=== PATIENT | male | born 1965 | race Caucasian/White ===

== ENCOUNTER 2016-10-16 05:29 | Inpatient (IN) ==
[2016-10-16] MEDS ORDERED: ASPIRIN PO STA (05:38)
--- NOTE | 2016-10-16 05:54 | EKG Report ---
Test Performed on : 10/16/2016 05:30:19 AM Test Reason : Chest Pain Blood Pressure : / mmHG Vent. Rate : 093 BPM Atrial Rate : 093 BPM P-R Int : 130 ms QRS Dur : 096 ms QT Int : 400 ms P-R-T Axes : 070 014 095 degrees QTc Int : 497 ms Normal sinus rhythm. Possible Left atrial enlargement Left ventricular hypertrophy Inferior infarct , age undetermined Abnormal ECG No previous ECGs available Unconfirmed Result
[2016-10-16 05:56] LABS: MANUAL DIFF NEEDED? NO
[2016-10-16 06:00] LABS: BASO% 0.3 % (0.0-0.8); EOS# 0.18 X1000 (0.0-0.7); EOS% 2.3 % (0.0-10.0); HEMATOCRIT 41.7 % (42.0-52.0); HEMOGLOBIN 13.9 g/dL (14.0-18.0); IMM GRAN# 0.02 X1000 (0.0-0.04); IMM GRAN% 0.3 % (0.0-0.5); LYMPH# 2.44 X1000 (1.2-3.4); LYMPH% 31.4 % (20.5-51.1); MCH 29.5 PG (27-31); MCHC 33.3 g/dL (33-37); MCV 88.5 FL (81-99); MONO# 0.56 X1000 (0.11-0.59); MONO% 7.2 % (1.7-9.3); MPV 11.3 FL (7.4-10.4); NEUT% 58.5 % (42.2-75.2); PLT 239 X1000 (130-400); RBC 4.71 XMIL (4.7-6.1)
--- NOTE | 2016-10-16 06:07 | PROVIDER DOCUMENTATION ---
HPI-Chest Pain - General Chief Complaint: Chest Pain Stated Complaint: TROUBLE BREATHING Time Seen by Provider: 10/16/16 06:01 Source: patient Allergies/Adverse Reactions: Patient Allergies Allergy/AdvReac Type Severity Reaction Status Date / Time No Known Allergies Allergy Verified 10/16/16 05:54 Home Medications: Home Medication List Medication Instructions Recorded Confirmed Last Taken Type NK [No Home Medications] 10/16/16 10/16/16 Unknown History - History of Present Illness-CP Nature of Presenting Problem: 51 yo WM presented to ER with marked SOB and chest heaviness.. He is known to have IHD and did have two stents placed while in [facility]. He reports orthopnea , DOEbut no edema. Location: reports: substernal Chest Pain Radiation: reports: no radiation Quality of Pain: reports: fullness, pressure Severity in ED: mild Onset/Duration: 4-6 hours ago Timing: still present Context/Activities at Onset: reports: sleep Modifying Factors: improves with: nothing Associated Symptoms: reports: fatigue, shortness of breath, weakness Nitro Today/Relief: no nitro taken today Aspirin Treatment Today: no aspirin today Prior Chest Pain/Cardiac Workup: reports: cardiac cath, heart attack Similar Symptoms Previously?: Yes Recently Seen Here or By Another Healthcare Provider: No Review of Systems - Adult - REVIEW OF SYSTEMS - ADULT Constitutional: reports: see HPI, fatique Eyes: reports: no symptoms reported Ears, Nose, Mouth & Throat: reports: no symptoms reported Cardiovascular: reports: see HPI, chest pain, heart murmur, orthopnea, PND, syncope. denies: edema Respiratory: reports: dyspnea on exertion, wheezing Gastrointestinal: reports: no symptoms reported Genitourinary: reports: no symptoms reported Musculoskeletal: reports: no symptoms reported Integumentary: reports: no symptoms reported Neurological: reports: no symptoms reported Psychiatric: reports: no symptoms reported Endocrine: reports: no symptoms reported Hematologic/Lymphatic: reports: no symptoms reported Allergic/Immunologic: reports: no symptoms reported All Other Systems: Reviewed and Negative Past History - Adult - PAST MEDICAL HISTORY-ADULT Review of Records: reports: Old Records Reviewed, Nursing Assessment Review, Medications Reviewed, Social history reviewed & non-contributory. Physical Exam-General - PHYSICAL EXAM-ADULT Initial Vital Signs Reviewed: Yes - CONSTITUTIONAL General Appearance: alert, mild distress, thin, anxious. negative: appears well , no apparent distress - EYES Eyes: PERRL/EOMI, pink conjunctivae, anisocoria - HEAD, EARS, NOSE, MOUTH & THROAT HENMT: normal ENT inspection - NECK Neck: non-tender, full range of motion, supple - RESPIRATORY Respiratory: chest non-tender, lungs clear, normal breath sounds, no pleuratic chest pain, no respiratory distress, no accessory muscle use. negative: respiratory distress, wheezing - CARDIOVASCULAR Cardiovascular: normal peripheral pulses, regular rate, rhythm, no edema, no gallop, no JVD, systolic murmur. negative: JVD - GASTROINTESTINAL (ABDOMEN) Abdominal Exam: normal bowel sounds, non tender, soft, no organomegaly - LYMPHATIC Lymphatic: no adenopathy - MUSCULOSKELETAL Back Exam: normal inspection Extremity: normal range of motion Peripheral Pulses: radial (R): 2+, radial (L): 2+ - SKIN Integumentary: normal color, normal turgor, warm/dry - NEUROLOGIC Neurologic: grossly normal - PSYCHIATRIC Psych/Mental Status: normal mood/affect, normal thought content Progress - PLAN OF CARE/RESULTS Progress/Plan/Lab Results: Vital Signs - 8 hr 10/16/16 05:29 10/16/16 06:21 10/16/16 06:43 Pulse Rate 97 H 98 H 80 Respiratory Rate 20 25 H Blood Pressure 154/106 145/117 O2 Sat by Pulse Oximetry 94 L 98 10/16/16 07:07 10/16/16 07:24 10/16/16 08:50 Pulse Rate 95 H 93 H 85 Respiratory Rate 18 Blood Pressure 162/121 148/117 142/112 O2 Sat by Pulse Oximetry 98 100 98 Laboratory Results - last 24 hr 10/16/16 10/16/16 10/16/16 05:35 05:35 05:35 WBC 7.76 RBC 4.71 Hgb 13.9 L Hct 41.7 L MCV 88.5 MCH 29.5 MCHC 33.3 RDW Std Deviation 14.6 H Plt Count 239 MPV 11.3 H Immature Gran % (Auto) 0.3 Neut % (Auto) 58.5 Lymph % (Auto) 31.4 [place] % (Auto) 7.2 Eos % (Auto) 2.3 Baso % (Auto) 0.3 Immature Gran # (Auto) 0.02 Neut # (Auto) 4.54 Lymph # (Auto) 2.44 [place] # (Auto) 0.56 Eos # (Auto) 0.18 Baso # (Auto) 0.02 PT INR PTT (Actin FS) D-Dimer 0.92 H Sodium 141 Potassium 4.3 Chloride 105 Carbon Dioxide 25 Anion Gap 11 BUN 21 Creatinine 1.7 H Estimated GFR/1.73 m2 42 BUN/Creatinine Ratio 12 Glucose 91 Calculated Osmolality 284 Calcium 9.0 Magnesium 2.0 Total Bilirubin 0.59 AST 21 ALT 24 Alkaline Phosphatase 142 H Creatine Kinase 75 Troponin T Nxe-V-Jxuiawdjxte Pept Total Protein 6.6 Albumin 3.6 Globulin 3.0 Albumin/Globulin Ratio 1.2 10/16/16 10/16/16 10/16/16 05:35 05:35 05:35 WBC RBC Hgb Hct MCV MCH MCHC RDW Std Deviation Plt Count MPV Immature Gran % (Auto) Neut % (Auto) Lymph % (Auto) [place] % (Auto) Eos % (Auto) Baso % (Auto) Immature Gran # (Auto) Neut # (Auto) Lymph # (Auto) [place] # (Auto) Eos # (Auto) Baso # (Auto) PT 12.8 H INR 1.20 PTT (Actin FS) 29.6 D-Dimer Sodium Potassium Chloride Carbon Dioxide Anion Gap BUN Creatinine Estimated GFR/1.73 m2 BUN/Creatinine Ratio Glucose Calculated Osmolality Calcium Magnesium Total Bilirubin AST ALT Alkaline Phosphatase Creatine Kinase Troponin T < 0.010 Kwl-V-Vjeinkoxkfa Pept 5670 H Total Protein Albumin Globulin Albumin/Globulin Ratio Orders Category Date Time Status Cardiac Monitoring DIRECTED Care 10/16/16 05:38 Active Oxygen Therapy- ED Nursing DIRECTED Care 10/16/16 05:38 Active Saline Loc NOW Care 10/16/16 05:38 Active CHEST-1 VIEW [RAD] Stat Exams 10/16/16 05:38 Completed CBC WITH ELECTRONIC DIFF [HEME] Stat Lab 10/16/16 05:35 Completed CK PROFILE [SP CHEM] Stat Lab 10/16/16 05:35 Completed COMPREHENSIVE METABOLIC PANEL [CHEM] Stat Lab 10/16/16 05:35 Completed D-DIMER [CHEM] Stat Lab 10/16/16 05:35 Completed MAGNESIUM [CHEM] Stat Lab 10/16/16 05:35 Completed PRO B-NATRIURETIC PEPTIDE Stat Lab 10/16/16 05:35 Completed PROTIME WITH INR [COAG] Stat Lab 10/16/16 05:35 Completed PTT [COAG] Stat Lab 10/16/16 05:35 Completed TROPONIN T Stat Lab 10/16/16 05:35 Completed Albuterol 2.5MG/Ipratrop 0.5MG [Duoneb (A & A)] Med 10/16/16 06:34 Discontinued 3 ml INH NOW ONE Aspirin Med 10/16/16 05:38 Discontinued 325 mg PO STAT STA CefTRIAXONE 1 GM/NS [Rocephin 1 gm/Ns] Med 10/16/16 08:46 Active 1 gm in 50 ml IV NOW Furosemide [Lasix] Med 10/16/16 06:34 Discontinued 40 mg IV NOW ONE Aerosol Treatments Routine Oth 10/16/16 06:34 Completed Aerosol Treatments Stat Oth 10/16/16 06:34 Completed EKG [EKG] Stat Ther 10/16/16 05:38 Draft Echo Spec/Color Dop W/O Contra Stat Ther 10/16/16 07:10 Ordered Result Diagrams: 10/16/16 05:35 10/16/16 05:35 - XRAY 1 XRAY Study: Chest Impression: Abnormal XRAY Interpretation: significant cardiomegaly. bilateral alveolar inflitrates - CONSULTS/PCP/HOSPITALIST Notification #1 *Consult/PCP/Hospitalist*: Dr. Amaya Time Discussed: 08:52 Consult Disposition: Admit - CHANGE OF SHIFT REPORT (ED Provider) Report Given and Care Transferred to:: Dr Arnett Time of Transfer: 06:14 Items Pending: Labs, XRAY Results Departure - Departure Time of Disposition Decision: 08:54 DIAGNOSIS: Hypoxemia requiring supplemental oxygen CHF (congestive heart failure) Qualifiers: Congestive heart failure type: unspecified congestive heart failure type Congestive heart failure chronicity: unspecified congestive heart failure chronicity Qualified Code(s): I50.9 - Heart failure, unspecified Pneumonia Qualifiers: Pneumonia type: due to unspecified organism Laterality: bilateral Lung location : unspecified part of lung Qualified Code(s): J18.9 - Pneumonia, unspecified organism Disposition: ADMITTED INPATIENT 09 Certified Medical Emergency: Emergent Condition: Fair Referrals and Follow-Ups: None,PCP [Primary Care Provider] - - Critical Care Note This patient required my direct & personal management of CC.: No
[2016-10-16 06:24] LABS: ALBUMIN 3.6 g/dL (3.5-5.0); POTASSIUM 4.3 mmol/L (3.5-5.1); TOTAL BILIRUBIN 0.59 mg/dL (0.20-1.00); TOTAL PROTEIN 6.6 g/dL (6.3-8.3)
[2016-10-16 06:34] LABS: INR 1.2; PROTIME 12.8 Seconds (9.2-11.7); PTT 29.6 Seconds (22.0-36.0)
[2016-10-16] MEDS ORDERED: LASIX IV ONE (06:34)
[2016-10-16] MEDS ORDERED: DUONEB (A & A) INH ONE (06:34)
--- NOTE | 2016-10-16 07:39 | Diag Imaging Result Document ---
PROCEDURE NAME: CHEST-1 VIEW - 10/16/2016 PORTABLE CHEST X-RAY, 10/16/2016: COMPARISON: None. FINDINGS: There is cardiomegaly. There are ill-defined bilateral infiltrates, in the medial right lung base and in the left mid lung. Pulmonary vascularity is normal. No pneumothorax or pleural effusion. IMPRESSION: 1. Significant cardiomegaly. 2. Bilateral alveolar infiltrates, nonspecific.
[2016-10-16] MEDS ORDERED: ROCEPHIN 1 GM/NS 1 GM/50 ML IVPB IV ONE (08:46)
[2016-10-16 09:50] LABS: URINE CULTURE NEEDED? NO; URINE MICRO REVIEW NEEDED? NO; URINE SOURCE CLEAN CATCH
[2016-10-16 09:57] LABS: BILIRUBIN URINE NEGATIVE (NEGATIVE); BLOOD URINE NEGATIVE (NEGATIVE); COLOR STRAW; GLUCOSE URINE NEGATIVE (NEGATIVE); LEUKOCYTES URINE NEGATIVE (NEGATIVE); NITRITE URINE NEGATIVE (NEGATIVE); PROTEIN URINE NEGATIVE (NEGATIVE); SP GRAVITY URINE 1.005; TURBIDITY URINE CLEAR (CLEAR); UROBILINOGEN URINE NORMAL (NORMAL)
[2016-10-16 09:58] LABS: UR EPITHELIAL CELLS <10 /HPF (<10); URINE BACTERIA NEGATIVE /HPF; URINE RBC <10 /HPF (<10); URINE WBC <10 /HPF (<10)
[2016-10-16] MEDS ORDERED: NITROGLYCERIN SL PRN (10:03)
[2016-10-16] MEDS ORDERED: NITROGLYCERIN 0.2 MG/HR PATCH TD SCH (10:15)
[2016-10-16] MEDS ORDERED: TYLENOL PO PRN (10:37)
[2016-10-16] MEDS ORDERED: ZOFRAN IV PRN (10:37)
[2016-10-16 10:43] LABS: ALLEN TEST YES; BE -0.7 mmoll (-3.0-3.0); BLOOD TYPE ARTERIAL; DRAW SITE R RADIAL; METHB 1.5 % (0.0-1.5); O2(CT) 19.1 mL/dL (15.0-23.0); PCO2(98.6) 36 mmHg (35-45); PO2(98.6) 97 mmHg (60-100); SAMPLE BLOOD; SAO2 99.5 % (95.0-100.0); THB 14.3 g/dL (11.5-17.4); pH(98.6) 7.42 (7.35-7.45)
[2016-10-16 10:44] LABS: MODALITY CANNULA
[2016-10-16] MEDS: MORPHINE IV PRN ×3 (10:51→20:57)
[2016-10-16] MEDS: DUONEB (A & A) INH PRN ×3 (11:22→23:30)
[2016-10-16] MEDS ORDERED: ZITHROMAX 500 MG/NS 500 MG/250 ML IVPB IV ONE (12:00)
[2016-10-16 12:04] LABS: UR AMPHETAMINES QUAL NONE DETECTED (NONE DETECT); UR BARBITUATES QUAL NONE DETECTED (NONE DETECT); UR BENZODIAZEPIN QUAL NONE DETECTED (NONE DETECT); UR CANNABINOIDS QUAL NONE DETECTED (NONE DETECT); UR COCAINE QUAL NONE DETECTED (NONE DETECT); UR METHADONE QUAL NONE DETECTED (NONE DETECT); UR OPIATES QUAL NONE DETECTED (NONE DETECT); UR OXYCODONE QUAL NONE DETECTED (NONE DETECT); UR PCP QUAL NONE DETECTED (NONE DETECT)
[2016-10-16] MEDS ORDERED: PRINIVIL PO SCH (12:15)
[2016-10-16] MEDS: NITROGLYCERIN TOP SCH ×2 (12:34→19:08)
--- NOTE | 2016-10-16 13:03 | CONSULTATION ---
DATE OF CONSULTATION: 10/16/2016 INDICATION: Chest pain with previous history of coronary artery disease. HISTORY OF PRESENT ILLNESS: Mr. Ruiz is a 51-year-old white male with a history of presumed previous MA, he thinks treated at [facility] many years ago. He presented for evaluation of shortness of breath that has worsened over the last 2 weeks, along with some chest discomfort that began today. The shortness of breath has been progressive over the last couple of weeks and has progressed to the point where he has been having difficulty walking across a room (NYHA Class 3 type symptoms). He also has had some issues with orthopnea as well. His discomfort in his chest has been nonexertional. He thinks it is similar to his previous MA. There is no radiation he pointed to a point area below his right breast to localize the discomfort. He reports no recent medications and has not been on any in the last 4 5 months secondary to not being able to get any. He has a previous history of incarceration that is related to him having difficulty finding work as well as staying up with his medications. PAST MEDICAL HISTORY: 1. Presumed coronary disease with no records currently available. 2. Hypertension. SOCIAL HISTORY: He currently smokes around a half pack per day. Again, previous history of incarceration. FAMILY HISTORY: Significant for hypertension. REVIEW OF SYSTEMS: A 10 system review of systems is negative except for those things mentioned in the HPI. PHYSICAL EXAMINATION: He is afebrile. Heart rate of 88. His systolic blood pressures have been in the 140s to 160s with diastolics in the 110s to 120s. General: No acute distress. HEENT: Oropharynx is moist. Poor dentition. Eye examination shows pink conjunctivae. White sclerae. Neck: Examination shows no obvious thyromegaly or thyroid tenderness. Cardiovascular: He is in a regular rate and rhythm. He has no S3, no S4. He does have a 2 to 3/6 holosystolic murmur best heard at the apex with no lower extremity edema. Chest: Exam has some basilar rales. No increased work of breathing. Abdomen: Soft, nontender, nondistended. He has no obvious organomegaly. Skin Exam: Warm and dry throughout without any rashes. Neurological: He is moving all extremities well. Cranial nerves 2 through 12 are intact without any sensation deficits. Psychiatric: He is alert, oriented, and pleasant. He has a normal mood and affect. PERTINENT DATA: EKG shows sinus rhythm, inferior Q-waves, nonspecific diffuse ST changes. He had a chest x-ray showing significant cardiomegaly with bilateral alveolar infiltrates. His laboratory data shows a white count is 7.7, hematocrit 41, platelet count 239,000. INR 1.20. D- dimer is 0.92. His sodium is 141, potassium 4.3, BUN 21, creatinine 0.7. We are unclear what his baseline is. His proBNP is 5,607. His troponin is negative on 1st check. His UDS is negative. ASSESSMENT: Presumed previous history of coronary disease. Patient presenting with complaints of shortness of breath. PLAN: His physical exam is consistent with mitral regurgitation which is confirmed by his echo. He has what appears to be severe mitral regurgitation with posterior wall motion abnormality. Likely this is a previous inferior infarct resulting in ischemic MR. Will continue him on the Coreg as already ordered. I will likely add in some nitroglycerin paste and continue on IV diuresis. We will try to get him in a better fluid volume status initially and then could consider an ischemic workup in the future. I will request his records from [facility]. cc: Rick Underwood MD
--- NOTE | 2016-10-16 13:08 | Diag Imaging Result Document ---
PROCEDURE NAME: US AORTA (LIMITED) - 10/16/2016 ULTRASOUND AORTA: COMPARISON: None. FINDINGS: There is rather advanced irregularity of the aortic contour with significant heterogeneous echogenicity plaque. Some of this is apparently shadowing calcified plaque. There is no significant abdominal aortic aneurysm. The maximum measurement approximately is 2.6 x 2 cm. The aortic bifurcation is normal. The common iliac arteries are normal measuring 9 mm on each side. IMPRESSION: Rather advanced vascular disease of the abdominal aorta, but no aneurysm.
[2016-10-16] MEDS ORDERED: G.I. COCKTAIL PO ONE (13:19)
[2016-10-16] MEDS ORDERED: APRESOLINE IV ONE (13:19)
[2016-10-16] MEDS ORDERED: APRESOLINE IV PRN (13:38)
[2016-10-16] MEDS: PROTONIX IV SCH (14:13)
[2016-10-16] MEDS: SODIUM CHLORIDE 0.9% INJ SCH (14:13)
--- NOTE | 2016-10-16 14:32 | ECHO REPORT ---
ORDER DATE: 10/16/2016 ECHOCARDIOGRAPHIC MEASUREMENTS: 1. Interventricular septum 1.0. Left ventricular posterior wall 1.6. Diastolic diameter 6.0. Left atrium 4.6. Aorta 3.6. Aortic valve leaflets are mildly sclerosed, trileaflet. Pulmonic valve was normal. 2. Mitral valve leaflets revealed mild prolapse of the posterior mitral leaflet. 3. Tricuspid valve was normal. 4. Dilated left ventricle with reduced systolic function. Estimated ejection fraction of 25%. There is global hypokinesis. 5. There is severe mitral regurgitation. 6. Moderate to severe tricuspid regurgitation. Peak velocity across the tricuspid valve was 4 m/sec. Pulmonary artery systolic pressure 76 mmHg. There is pulmonary arterial hypertension. 7. There is mild pulmonary regurgitation. 8. There is no pericardial effusion or obvious intracardiac mass or thrombus seen. 9. Peak velocity across the aortic valve less than 2 m/sec. There is no aortic stenosis or regurgitation. 10. There is biatrial enlargement. cc: Jack Lowery MD
[2016-10-16 14:48] LABS: HEMOGLOBIN A1C 5.5 % (4.8-6.0)
--- NOTE | 2016-10-16 15:38 | HISTORY AND PHYSICAL ---
PRIMARY CARE PROVIDER: No one. CHIEF COMPLAINT: Chest heaviness with shortness of breath. HISTORY OF PRESENT ILLNESS: Mr. Elpidio Ruiz is a 51-year-old male with a history of coronary artery disease, status post myocardial infarctions and 9 stents, hypertension, CVA, hyperlipidemia who presents with chest pain that is intermittent in nature with shortness of breath. He says it lasts 2-3 minutes with a frequency of every 10-15 minutes. Currently pain level is 9. It radiates to his stomach. There is an abdominal aortic bruit and he does have a systolic ejection murmur 2/6. He denies nausea or vomiting. Denies fever or chills. Denies any aggravating or alleviating factors. Denies edema. He does state that he has orthopnea, dyspnea on exertion and significant weakness. He states that this has gone on for the last 2 weeks and that he has had 9 stents when he was in group home. Currently complains of pain level 9/10. EKG shows no ST elevations. Cardiac enzymes are negative. We will admit to the [facility] given the current complaints of chest pain and the history of myocardial infarctions. Consult Cardiology. We will do an echocardiogram, an aortic ultrasound, start him on nitroglycerin paste and a beta-ralf. PAST MEDICAL HISTORY: Ischemic heart disease. Coronary artery disease myocardial infarctions with 9 stents, hypertension, CVA with no residual, hyperlipidemia. SURGICAL HISTORY: Cardiac stents x9. SOCIAL HISTORY: Smokes a half pack per day for 25 years. Denies alcohol or illicit drug use. Lives in [place] with a friend. He does not work. FAMILY HISTORY: Father had a CVA. REVIEW OF SYSTEMS: Fourteen point review of systems were complete and all were negative except for those mentioned in above HPI. ALLERGIES: No known drug allergies. HOME MEDICATIONS: None. LABORATORY DATA: White blood cells 7000, hemoglobin 13, hematocrit 41, platelet count 239,000. INR 1.2. D-dimer 0.92, sodium 141, potassium 4.3, BUN 21, creatinine is 1.7, glucose 91. Magnesium 2. Bilirubin 0.59. AST 21, ALT 24. CK 75, troponins 0.01, proBNP 5670. Urinalysis is negative. Urine drug screen has been ordered. IMAGIN. EKG; normal sinus rhythm, rate 93, QTc is 497. There are no ST elevations. 2. Chest x-ray: Cardiomegaly. Bilateral infiltrates. PHYSICAL EXAMINATION: VITAL SIGNS: Temperature 97.6 degrees, heart rate 88, respiratory rate 18, blood pressure 161/113. O2 saturation 96% on 4 L nasal cannula. GENERAL: Mr. Elpidio Ruiz is a 51-year-old male, currently complaining of chest pain, but is able answer all questions appropriately. HEENT: Atraumatic, normocephalic. Pupils equal, round, reactive to light. Extraocular movements intact. Mucous membranes are dry. NECK: No JVD or carotid bruits noted. CARDIOVASCULAR: S1, S2. Regular rate and rhythm. No rubs, gallops. There is a 2/6 systolic ejection murmur that radiates to the aorta causing an aortic bruit. PULMONARY: Clear to auscultation bilateral breath sounds. No accessory muscle use or work of breathing noted. GI: Soft, nontender, nondistended. Positive bowel sounds x4. EXTREMITIES: No edema noted. +1 dorsalis pedal pulses, +2 radial pulses. Denies numbness and tingling in the lower extremities. NEUROLOGIC: Alert and oriented x4. Moves all extremities equally. ASSESSMENT AND PLAN: 1. Chest pain. Cardiac enzymes are negative. There are no ST elevations on electrocardiogram, but does have a history of coronary artery disease with myocardial infarctions. Apparently has 9 stents. We will continue on aspirin. We will add a statin. Started on a beta ralf. We will do routine cardiac enzymes. Consult Cardiology. 2. Cardiomegaly. Per chest x-ray, echocardiogram has been ordered. There is a 2 out of 6 systolic ejection murmur. There is no lower extremity edema. No obvious pulmonary edema upon auscultation. Again, Cardiology has been consulted. 3. Bilateral pneumonia. We will continue on Rocephin and Azithromycin, pulmonary toilet. White count is normal. No complaints of cough with phlegm. 4. Acute hypoxemic respiratory insufficiency, requiring oxygen. 5. Hypertension. We will do nitroglycerin and beta ralf. 6. History of cerebrovascular accident. No residual. 7. Hyperlipidemia. Continue lovastatin. 8. Tobacco abuse. Cessation discussed. Dictated by NICOLE Castillo for Bridger Roberts MD cc: NICOLE Castillo MD [facility]
[2016-10-16] MEDS: LIPITOR PO SCH (20:15)
[2016-10-16] MEDS: COREG PO SCH (20:15)
[2016-10-16] MEDS: NICODERM PATCH TD SCH (20:15)
[2016-10-16] MEDS ORDERED: LOPRESSOR PO SCH (21:00)
[2016-10-17] MEDS: MORPHINE IV PRN ×3 (00:48→19:20)
[2016-10-17] MEDS: SODIUM CHLORIDE 0.9% INJ SCH ×2 (00:48→12:39)
[2016-10-17] MEDS: PROTONIX IV SCH ×2 (00:48→12:39)
[2016-10-17] MEDS: NITROGLYCERIN TOP SCH ×2 (01:37→12:41)
[2016-10-17] MEDS: DUONEB (A & A) INH PRN (03:20)
[2016-10-17 05:13] LABS: MANUAL DIFF NEEDED? NO
[2016-10-17 05:16] LABS: BASO% 0.2 % (0.0-0.8); EOS# 0.11 X1000 (0.0-0.7); EOS% 1.3 % (0.0-10.0); HEMATOCRIT 40.1 % (42.0-52.0); HEMOGLOBIN 13.4 g/dL (14.0-18.0); LYMPH# 2.18 X1000 (1.2-3.4); LYMPH% 26.1 % (20.5-51.1); MCH 29.3 PG (27-31); MCHC 33.4 g/dL (33-37); MCV 87.6 FL (81-99); MONO# 0.51 X1000 (0.11-0.59); MONO% 6.1 % (1.7-9.3); MPV 11.6 FL (7.4-10.4); NEUT% 66.3 % (42.2-75.2); PLT 223 X1000 (130-400); RBC 4.58 XMIL (4.7-6.1)
[2016-10-17 05:29] LABS: HEMOGLOBIN A1C 5.5 % (4.8-6.0)
[2016-10-17 05:38] LABS: AGAP 11; ALBUMIN 3.5 g/dL (3.5-5.0); ALKALINE PHOSPHATASE 140 U/L (32-122); BUN 22 mg/dL (8-22); CALCIUM 8.6 mg/dL (8.8-10.2); CHLORIDE 104 mmol/L (98-107); COSMO 274; GOT 17 U/L (10-34); GPT 22 U/L (10-44); POTASSIUM 4.2 mmol/L (3.5-5.1); SODIUM 135 mmol/L (136-145); TCO2 20 mmol/L (25-35); TOTAL BILIRUBIN 0.53 mg/dL (0.20-1.00); TOTAL PROTEIN 6.8 g/dL (6.3-8.3)
--- NOTE | 2016-10-17 06:06 | EKG Report ---
Test Performed on : 10/17/2016 05:47:34 AM Test Reason : Heart Failure Admission Blood Pressure : / mmHG Vent. Rate : 084 BPM Atrial Rate : 084 BPM P-R Int : 134 ms QRS Dur : 100 ms QT Int : 416 ms P-R-T Axes : 057 -03 102 degrees QTc Int : 491 ms Normal sinus rhythm. Possible Left atrial enlargement Inferior infarct (cited on or before 16-OCT-2016) Abnormal ECG When compared with ECG of 16-OCT-2016 05:30, No significant change was found Confirmed by Sheng Fox MD ([id number]) on 10/17/2016 3:19:20 PM
[2016-10-17] MEDS ORDERED: PROTONIX PO SCH (07:00)
[2016-10-17] MEDS ORDERED: LASIX PO SCH (09:00)
[2016-10-17] MEDS: ASPIRIN PO SCH (09:12)
[2016-10-17] MEDS: NICODERM PATCH TD SCH (09:12)
[2016-10-17] MEDS: LOVENOX SUBQ SCH (09:12)
[2016-10-17] MEDS: LASIX IV SCH (09:14)
[2016-10-17] MEDS: ROCEPHIN 1 GM/NS 1 GM/50 ML IVPB IV SCH (09:15)
[2016-10-17] MEDS: COREG PO SCH ×2 (09:31→20:19)
--- NOTE | 2016-10-17 11:51 | PROGRESS NOTE ---
DATE: 10/17/2016 SUBJECTIVE: The patient reports feeling chest pain on and off in the substernal area that lasts approximately 30 seconds to 1 minute and then goes away. No shortness of breath. No fever. No chills. OBJECTIVE: Vital Signs: Temperature 97.3 degrees, heart rate 83, respiratory rate 24, blood pressure 136/96, O2 saturation 100% 2L nasal cannula. General Examination: This is a chronically ill-looking, 51-year-old male, lying in bed in no acute distress. HEENT: Head is normocephalic, atraumatic. Anicteric sclerae and pale conjunctivae. Mucous membranes moist. Neck: Supple. No JVD noted. No carotid bruits. No lymphadenopathy. No thyromegaly. Respiratory: Clear bilaterally to auscultation. No work of breathing or using accessory muscles. Cardiovascular: S1 and S2 heard. No gallops or rubs. There is 2 over 6 systolic murmur in the aortic area that radiates to the neck. Abdomen: Soft, nontender to palpation. Bowel sounds present. No organomegaly. Extremities: No clubbing, cyanosis, or edema. Peripheral pulses present in both legs. Neurological: Patient alert and oriented x3. Able to move 4 extremities. Cranial nerves 2-12 grossly normal. LABORATORY DATA: CBC and BMP are completely unremarkable. ASSESSMENT AND PLAN: 1. Chest pain. The patient has been admitted for this problem. Cardiac enzymes have been so far negative. There are no ST elevations on the EKG. Considering his strong history of coronary artery disease with 9 stents placed recently, Cardiology has been consulted and they are planning to continue with medical management and then, after he is more stable, they will consider pursuing ischemic workup. We will continue following their recommendations. 2. Cardiomegaly. This is a finding that we saw on the x-rays, so an echocardiogram has been ordered, but is not back yet. 3. Bilateral pneumonia. Patient is on Rocephin and azithromycin. White cell count is normal. The patient is on breathing treatments and patient is afebrile. We will continue with the same management. 4. Acute hypoxemic respiratory failure. Patient is on between 2L and 3L of oxygen by nasal cannula. We will continue with same management. 5. Hypertension. The patient is on beta-blockers and also nitroglycerin for chest pain. Blood pressure is 130. We will continue with the same management. 6. History of cerebrovascular accident. Aware. There are no residual signs. 7. Hyperlipidemia. The patient is on lovastatin and we will definitely change to atorvastatin, considering that we need a stronger statin to control this already known severe coronary artery disease. 8. Tobacco abuse. Patient has been advised to stop smoking. cc: Ignacio Horn MD
[2016-10-17] MEDS: ZITHROMAX 500 MG/NS 500 MG/250 ML IVPB IV SCH (12:40)
--- NOTE | 2016-10-17 14:31 | PROGRESS NOTE ---
DATE: 10/17/2016 SUBJECTIVE: Mr. Ruiz reports he is feeling somewhat better today. He has diuresed significantly. PHYSICAL EXAMINATION: Vital signs: Afebrile. Heart rate 85, blood pressure is 122/86. His I's and O's have been significantly negative at around 3 L or so negative over the course of the last 24 hours. General: He is in no acute distress. Cardiovascular: He is in a regular rate and rhythm. He has a 2 to 3/6 blowing holosystolic murmur best heard at the apex. No lower extremity edema. Chest: Clear to auscultation bilaterally. He has no increased work of breathing. Abdomen: Soft, nontender, nondistended. He has no obvious organomegaly. PERTINENT DATA: His echocardiogram yesterday shows an EF of 25%. He does have evidence for severe MR and he does appear to have an inferior wall motion abnormality per my review. His laboratory data shows a white count 8.3, hematocrit 40, platelet count 223,000. Sodium 135, potassium 4.2, BUN is 22, creatinine 0.2. ProBNP is 4934, his initial was 5670. ASSESSMENT: 1. Likely ischemic cardiomyopathy. 2. Severe mitral regurgitation. 3. Systolic heart failure. PLAN: I will stop the transdermal nitroglycerin, put him on Entresto b.i.d. We will continue him on the Coreg for now. We will continue to diurese and consider addition of spironolactone in the near future. The patient is already on 40 mg at bedtime of atorvastatin which I would continue with. We are pending records from [facility] as well as possibly [facility] regarding previous evaluations. cc: Rick Underwood MD
[2016-10-17] MEDS: ENTRESTO 24 MG-26 MG TABLET PO SCH (20:19)
[2016-10-17] MEDS: LIPITOR PO SCH (20:19)
[2016-10-17] MEDS ORDERED: MELATONIN PO ONE (21:24)
[2016-10-18] MEDS: NICODERM PATCH TD SCH ×2 (00:34→08:37)
[2016-10-18 05:12] LABS: MANUAL DIFF NEEDED? NO
[2016-10-18 05:19] LABS: BASO% 0.2 % (0.0-0.8); EOS# 0.12 X1000 (0.0-0.7); EOS% 1.2 % (0.0-10.0); LYMPH# 2.79 X1000 (1.2-3.4); LYMPH% 28.2 % (20.5-51.1); MCHC 33.3 g/dL (33-37); MONO# 0.68 X1000 (0.11-0.59); MONO% 6.9 % (1.7-9.3); MPV 11.3 FL (7.4-10.4); NEUT% 63.5 % (42.2-75.2); PLT 245 X1000 (130-400); RBC 4.83 XMIL (4.7-6.1)
[2016-10-18 05:32] LABS: AGAP 12; ALBUMIN 3.2 g/dL (3.5-5.0); ALKALINE PHOSPHATASE 125 U/L (32-122); BUN 23 mg/dL (8-22); CALCIUM 8.2 mg/dL (8.8-10.2); CHLORIDE 103 mmol/L (98-107); COSMO 276; GOT 13 U/L (10-34); GPT 18 U/L (10-44); POTASSIUM 4.1 mmol/L (3.5-5.1); SODIUM 136 mmol/L (136-145); TCO2 21 mmol/L (25-35); TOTAL PROTEIN 6.5 g/dL (6.3-8.3)
[2016-10-18] MEDS: ASPIRIN PO SCH (08:24)
[2016-10-18] MEDS: ENTRESTO 24 MG-26 MG TABLET PO SCH (08:24)
[2016-10-18] MEDS: LASIX IV SCH (08:24)
[2016-10-18] MEDS: COREG PO SCH ×2 (08:24→22:02)
[2016-10-18] MEDS: LOVENOX SUBQ SCH (08:24)
[2016-10-18] MEDS: PROTONIX IV SCH ×2 (08:24→22:02)
[2016-10-18] MEDS: SODIUM CHLORIDE 0.9% INJ SCH ×2 (08:24→22:02)
[2016-10-18] MEDS: ROCEPHIN 1 GM/NS 1 GM/50 ML IVPB IV SCH (08:25)
--- NOTE | 2016-10-18 09:49 | PROGRESS NOTE ---
DATE: 10/18/2016 SUBJECTIVE: Patient reports that he is no longer having any episodes of chest pain. No shortness of breath. No fever or chills. OBJECTIVE: Vital Signs: Temperature 97.9 degrees, heart rate 72, respiratory rate 16, blood pressure 124/89, and O2 saturation 95% on 2 L nasal cannula. General Examination: This is a chronically ill-looking, 51-year-old, male, lying in bed, in no acute distress. HEENT: Head is normocephalic and atraumatic. Anicteric sclerae and pale conjunctivae. Mucous membranes moist. Neck: Supple. No JVD noted. No carotid bruits. No lymphadenopathy. No thyromegaly. Cardiovascular Examination: S1 and S2 heard. No murmurs, gallops, or rubs. Regular rate and rhythm. Respiratory Examination: Decreased breath sounds globally. No wheezing. No crackles. Patient is not using any accessory muscles or having work of breathing. Abdomen: Soft, nontender to palpation. Bowel sounds present. No organomegaly. Extremities: No clubbing, cyanosis, or edema. Peripheral pulses present in both legs. Neurological Examination: Patient is alert and oriented x3. Moves 4 extremities. Laboratory Data: CBC and BMP are completely normal today. ASSESSMENT AND PLAN: 1. Chest pain. The patient is not complaining of chest pain any more. There was no ST-segment elevation on the electrocardiogram and cardiac enzymes have been so far negative. Cardiology is following this patient. At this point, they prefer to continue with medical treatment. We will see if, at some point during his hospitalization, they decide to proceed with ischemic workup. We will follow recommendations from them. 2. Ischemic cardiomyopathy. The echocardiogram ordered at admission actually showed an ejection fraction of 25% with global hypokinesis. There is also moderate to severe tricuspid regurgitation. We will follow recommendations from cardiology. 3. Bilateral pneumonia. Patient is on Rocephin and azithromycin, requiring 2 L of oxygen by nasal cannula. The white cell count is normal. We will continue with breathing treatments and antibiotics, in this case Rocephin and azithromycin. 4. Acute hypoxemic respiratory failure, now requiring 2 L of oxygen. Patient reports that he was using a friend's medication for difficulty in breathing. In this case, it was albuterol. He noted that he was breathing much better. We will provide a prescription upon discharge. 5. Hypertension. The patient on beta-blockers and also patient has been started on Entresto. We will continue with the same management. Blood pressure is well controlled. 6. History of cerebrovascular accident. Aware. 7. Hyperlipidemia. We will continue with the statin. 8. Tobacco abuse. Patient advised to stop smoking. cc: Ignacio Horn MD
[2016-10-18] MEDS: ZITHROMAX 500 MG/NS 500 MG/250 ML IVPB IV SCH (11:53)
--- NOTE | 2016-10-18 13:30 | PROGRESS NOTE ---
DATE: 10/18/2016 SUBJECTIVE: Mr. Ruiz reports he is feeling better today. OBJECTIVE: Vital Signs: He is afebrile. His heart rate is 75. Blood pressure 123/84. General: He is in no acute distress. Cardiovascular: He is in a regular rate and rhythm. No murmurs. No lower extremity edema. Chest: Clear bilaterally. No increased work of breathing. Abdomen: Soft, nontender, nondistended. No obvious organomegaly. PERTINENT DATA: White count is 9.8, hematocrit is 42, platelet count is 245,000. His sodium is 136, potassium 4.1, BUN 23, creatinine 1. ASSESSMENT: 1. Acute systolic heart failure. 2. History of myocardial infarction. PLAN: Patient's records from [facility] from 2008 were reviewed. Patient had acute inferior myocardial infarction and was noted to have a PCI performed at that time. He seems much better with the diuresis being performed. We will plan on stopping his Entresto secondary to no pay source. We will add in losartan 50 mg daily. I will add in Aldactone 12.5 mg daily. Chemistries were ordered for the morning as well as a proBNP. We will check a Lexiscan stress tomorrow and consideration for addition of a beta-ralf in the near future. proBNP will be checked tomorrow. cc: Rick Underwood MD
[2016-10-18] MEDS: MORPHINE IV PRN ×2 (14:18→22:10)
[2016-10-18] MEDS: LIPITOR PO SCH (22:02)
[2016-10-19 05:26] LABS: MANUAL DIFF NEEDED? NO
[2016-10-19 05:42] LABS: BASO% 0.4 % (0.0-0.8); EOS# 0.13 X1000 (0.0-0.7); EOS% 1.5 % (0.0-10.0); HEMATOCRIT 46.9 % (42.0-52.0); IMM GRAN# 0.02 X1000 (0.0-0.04); IMM GRAN% 0.2 % (0.0-0.5); MCH 29.4 PG (27-31); MCHC 34.1 g/dL (33-37); MCV 86.2 FL (81-99); MONO# 0.62 X1000 (0.11-0.59); MONO% 7.2 % (1.7-9.3); MPV 11.3 FL (7.4-10.4); NEUT% 62.7 % (42.2-75.2); PLT 274 X1000 (130-400); RBC 5.44 XMIL (4.7-6.1)
[2016-10-19 05:53] LABS: AGAP 10; ALBUMIN 3.3 g/dL (3.5-5.0); ALKALINE PHOSPHATASE 130 U/L (32-122); BUN 21 mg/dL (8-22); CALCIUM 8.8 mg/dL (8.8-10.2); CHLORIDE 103 mmol/L (98-107); COSMO 278; GOT 14 U/L (10-34); GPT 18 U/L (10-44); SODIUM 138 mmol/L (136-145); TCO2 25 mmol/L (25-35); TOTAL BILIRUBIN 0.38 mg/dL (0.20-1.00); TOTAL PROTEIN 6.5 g/dL (6.3-8.3)
[2016-10-19] MEDS: ROCEPHIN 1 GM/NS 1 GM/50 ML IVPB IV SCH ×2 (07:48→13:39)
[2016-10-19] MEDS ORDERED: COZAAR PO SCH ×2 (09:00→16:18)
--- NOTE | 2016-10-19 10:10 | PROGRESS NOTE ---
DATE: 10/19/2016 SUBJECTIVE: Patient reports feeling fine. Denies any chest pain. OBJECTIVE: Vital Signs: Temperature 97.8 degrees, heart rate 81, respiratory rate 18, blood pressure 135/95, O2 saturation 100% on 4 L nasal cannula. General Examination: This is a chronically ill-looking, frail, 51-year-old male, lying in bed in no acute distress. HEENT: Head is normocephalic, atraumatic. Anicteric sclerae and pale conjunctivae. Mucous membranes moist. Neck: Supple. No JVD noted. No carotid bruits. No lymphadenopathy. No thyromegaly. Cardiovascular exam: S1, S2 heard. No murmurs, gallops, or rubs. Regular rate and rhythm. Respiratory exam: Decreased breath sounds globally, but there are no wheezing or crackles noted. Patient is not using any accessory muscles or having work of breathing. Abdomen: Soft, nontender to palpation. Bowel sounds present. No organomegaly. Extremities: No clubbing, cyanosis, or edema. Peripheral pulses present in both legs. Neurological exam : Patient alert and oriented x3. Able to move 4 extremities. Cranial nerves 2-12 grossly normal. LABORATORY DATA: The CBC and BMP are completely unremarkable. ASSESSMENT AND PLAN; 1. Chest pain. Patient is not complaining of chest pain any more. Patient evaluated by cardiology. They are planning to do a stress test today. Cardiac enzymes has been negative so far and no ST-segment changes in the EKG. Regarding medication, because this patient is unable to pay for [employer], cardiology has started him on losartan and spironolactone. We will follow recommendations. 2. Ischemic cardiomyopathy with ejection fraction 25%. By now, the patient is stable, not complaining of any chest pain. Medical therapy as per cardiology. 3. Moderate to severe tricuspid regurgitation, aware. Cardiology following. 4. Bilateral pneumonia. Patient is on Rocephin and azithromycin, and currently this is day #2 of treatment. We will continue with the same management. White cell count is normal and requiring 2 L of oxygen by nasal cannula. 5. Acute hypoxemic respiratory failure. We mentioned before, secondary to pneumonia. We will continue with oxygen supplementation. 6. Hypertension. Patient's blood pressure is definitely better controlled. We will continue with the same management. 7. History of cerebrovascular accident, aware. 8. Hyperlipidemia. We will continue with the statin. 9. Tobacco abuse. Patient advised to stop smoking. cc: Ignacio Horn MD MTDD
[2016-10-19] MEDS ORDERED: LEXISCAN ONE (12:56)
[2016-10-19] MEDS: NICODERM PATCH TD SCH (14:58)
[2016-10-19] MEDS: ASPIRIN PO SCH (14:59)
[2016-10-19] MEDS: ALDACTONE PO SCH (14:59)
[2016-10-19] MEDS: COREG PO SCH ×2 (14:59→21:51)
[2016-10-19] MEDS: ZITHROMAX 500 MG/NS 500 MG/250 ML IVPB IV SCH (15:00)
[2016-10-19] MEDS: LOVENOX SUBQ SCH (15:00)
[2016-10-19] MEDS: LASIX IV SCH (15:00)
[2016-10-19] MEDS: PROTONIX IV SCH ×2 (15:00→21:51)
--- NOTE | 2016-10-19 15:08 | Diag Imaging Result Document ---
PROCEDURE NAME: MYOCARDIAL PERF SCAN, STR/REST - 10/19/2016 INDICATION: Chest pain. Heart failure. PROCEDURES PERFORMED: 1. Lexiscan stress. 2. One-day stress rest myocardial perfusion imaging. PROCEDURE IN DETAIL: Mr. Ruiz was brought to the [facility] and had a resting study with injection of 10.3 mCi of technetium-99m sestamibi with the usual imaging protocol. He subsequently was brought back down and had a Lexiscan stress. At peak stress he was injected with 30.7 mCi of technetium-99m sestamibi with usual imaging protocol utilized. FINDINGS: LEXISCAN STRESS RESULTS: 1. Baseline EKG shows sinus rhythm. 2. No evidence of ischemic-related EKG changes or significant arrhythmias occurred during the course of the study. PERFUSION IMAGING RESULTS: 1. He had no evidence of significant abnormal extracardiac uptake. He did appear to have some external chest wall contamination with radiotracer. 2. TID ratio 1.04. 3. Perfusion imaging demonstrates a moderate sized, moderate to severe intensity fixed defect located in the inferior apical, mid inferior, and basal inferior segments. This is consistent with infarct. There is no evidence of ischemic changes. 4. There is a severe reduction in LV systolic function with an EF of 14% on Myometric software with an end-diastolic volume of 229, end-systolic volume of 196. cc: Rick Underwood MD
[2016-10-19] MEDS: MORPHINE IV PRN (15:17)
--- NOTE | 2016-10-19 17:03 | PROGRESS NOTE ---
DATE: 10/19/2016 SUBJECTIVE: Mr. Ruiz reported he did well last night. He had no orthopnea. No chest pain. PHYSICAL EXAMINATION: Vital signs: He is afebrile. Heart rates in the 80s to 90s. Blood pressure 140/98. His I's and O's continue to be negative over the course of the hospitalization. General: No acute distress. Cardiovascular: He is in regular rate and rhythm. He has no obvious murmurs. No S3. He has no lower extremity edema. Chest: Clear bilaterally. He has no increased work of breathing. Abdomen: Soft, nontender. PERTINENT DATA: His white count is 8.6. His hematocrit 46.9. His platelet count is 274,000. Sodium was 138, potassium 4, BUN 21, creatinine 1.1. ProBNP is 1,365 which is down from 5,670 on presentation. ASSESSMENT: 1. Acute systolic heart failure. 2. Severe mitral regurgitation. 3. History of myocardial infarction. PLAN: I would continue him on his current medications with adjustments in the IV Lasix to oral Lasix at 40 mg daily and change in his losartan from 50 mg to 100 mg daily. Next med titrations I would pursue would be increase the Aldactone to 25 mg a day and start up titration of the carvedilol. I would consider doing this tomorrow if he remains as inpatient, otherwise we can do this as an outpatient. I believe he has achieved a of point potentially for discharge. He did have a myocardial perfusion scan which shows an inferior infarct which is previously known. His ejection fraction was significantly reduced on that study at 14%. Patient needs aggressive medical therapy as an outpatient and potentially referral for an ICD in the future. cc: Rick Underwood MD
[2016-10-19] MEDS: LIPITOR PO SCH (21:51)
[2016-10-19] MEDS: SODIUM CHLORIDE 0.9% INJ SCH (21:51)
[2016-10-20 05:36] LABS: MANUAL DIFF NEEDED? NO
[2016-10-20 05:41] LABS: BASO% 0.2 % (0.0-0.8); EOS# 0.09 X1000 (0.0-0.7); HEMOGLOBIN 15.4 g/dL (14.0-18.0); IMM GRAN# 0.02 X1000 (0.0-0.04); IMM GRAN% 0.2 % (0.0-0.5); LYMPH# 2.49 X1000 (1.2-3.4); LYMPH% 26.7 % (20.5-51.1); MCH 29.3 PG (27-31); MCHC 33.5 g/dL (33-37); MCV 87.6 FL (81-99); MONO# 0.68 X1000 (0.11-0.59); MONO% 7.3 % (1.7-9.3); NEUT% 64.6 % (42.2-75.2); PLT 264 X1000 (130-400); RBC 5.25 XMIL (4.7-6.1)
[2016-10-20 06:04] LABS: AGAP 14; ALBUMIN 3.7 g/dL (3.5-5.0); ALKALINE PHOSPHATASE 127 U/L (32-122); BUN 25 mg/dL (8-22); CALCIUM 8.9 mg/dL (8.8-10.2); CHLORIDE 99 mmol/L (98-107); COSMO 284; GOT 14 U/L (10-34); GPT 17 U/L (10-44); POTASSIUM 5.3 mmol/L (3.5-5.1); SODIUM 139 mmol/L (136-145); TCO2 26 mmol/L (25-35); TOTAL PROTEIN 6.7 g/dL (6.3-8.3)
[2016-10-20] MEDS ORDERED: LASIX PO SCH (09:00)
[2016-10-20] MEDS: ALDACTONE PO SCH (10:00)
[2016-10-20] MEDS: PROTONIX IV SCH (10:00)
[2016-10-20] MEDS: ASPIRIN PO SCH (10:00)
[2016-10-20] MEDS: ROCEPHIN 1 GM/NS 1 GM/50 ML IVPB IV SCH (10:00)
[2016-10-20] MEDS: COREG PO SCH (10:00)
[2016-10-20] MEDS: LOVENOX SUBQ SCH (10:01)
[2016-10-20] MEDS: SODIUM CHLORIDE 0.9% INJ SCH (10:01)
[2016-10-20] MEDS: NICODERM PATCH TD SCH (10:20)
[2016-10-20 11:22] VITALS: BP 125/56
[2016-10-20] MEDS: MORPHINE IV PRN (11:36)
[2016-10-20] MEDS: ZITHROMAX 500 MG/NS 500 MG/250 ML IVPB IV SCH (14:53)
--- NOTE | 2016-10-26 19:30 | DISCHARGE SUMMARY ---
ADMISSION DATE: 10/16/2016 DISCHARGE DATE: 10/20/2016 PERTINENT PROCEDURES: 1. Echocardiogram showed an EF of 25% with global hypokinesis. 2. Aorta ultrasound showed rather advanced vascular disease of the abdominal aorta but no aneurysm. 3. Myocardial perfusion scan showed no evidence of ischemic related EKG changes or significant arrhythmias during the course of the study. No evidence of significant abnormal extracardiac uptake. Imaging demonstrated a moderate to severe intensity fixed defect located in the inferior apical, mid inferior and basal inferior segment consistent with infarct. No evidence of ischemic changes. No severe reduction in systolic function with an EF of 14%, end- diastolic volume of 229. DISCHARGE DIAGNOSES: 1. Acute systolic heart failure. Continue on current medications. The patient will be on oral Lasix and his losartan changed from 50 mg to 100 mg daily. medication titration would be to pursue increase in Aldactone and titration of his carvedilol. 2. Severe mitral regurgitation. 3. Myocardial infarction history. Potentially needs a referral for an ICD in the near future. 4. Chest pain. The patient did undergo a perfusion scan. Cardiac enzymes were negative. No ST- segment changes on his EKG. The patient underwent medication adjustment. 5. Bilateral pneumonia. Patient was treated with IV antibiotics. White count is normal. 6. Acute hypoxemic respiratory failure secondary to pneumonia. Continue with O2 supplementation. 7. Hypertension. 8. Cerebrovascular accident history. Aware. 9. Hyperlipidemia. Continue statin. 10. Tobacco abuse. Patient was advised daily about smoking cessation as well as the means to quit. HOSPITAL COURSE: Mr. Ruiz is a 51-year-old, male with a history of previous DC treated at [facility] many years ago and also hypertension, who presented to the ED with shortness of breath that had worsened over the last 2 weeks along with chest discomfort that began on the day of his admission. His shortness of breath had progressed to the point where he was having difficulty walking across the room. He also had reported orthopnea. His chest discomfort was nonexertional. He thought was similar to his previous DC. There was no radiation. He reports no recent medications and has not been on any in the last 4-5 months secondary to not being able to get any. He has a previous history of incarceration and that is related to him having difficulty finding work as well as staying with his medicines. His echocardiogram revealed mitral regurgitation severe with posterior wall motion abnormality. Likely this is a previous inferior infarct resulting from ischemic MR. He was continued on Coreg with added nitroglycerin placed and continued on IV diuresis. The plan was to get the patient's fluid status better under control and then consider an ischemic workup in the future. The patient did undergo myocardial perfusion scan that showed no evidence of ischemic related EKG changes or significant arrhythmias during the course of the study. No evidence of significant abnormal extracardiac uptake but it did demonstrate a moderate sized, moderate to severe intensity fixed defect located in the inferior apical, mid inferior and basal inferior segments consistent with an infarct. No evidence of ischemic changes. Severe LV systolic function with an EF of 14%. The patient also had bilateral pneumonia and was treated with IV antibiotics as well as supplemental O2, bronchodilators and aggressive pulmonary toilet. He was transitioned from IV to p.o. Lasix, changed his losartan from 50 mg to 100 mg daily with medical titration in the near future of his Aldactone as well as his carvedilol, and needs aggressive medical therapy as an outpatient and potential referral for an ICD in the near future. The patient was discharged on 10/20/[address] Lake. VITAL SIGNS ON DAY OF DISCHARGE: Temperature 98 degrees, heart rate 61, respirations 14, blood pressure 125/56, O2 is 100% on room air. DISCHARGE DIET: Healthy heart. DISCHARGE MEDICATIONS PER DR. LAKE: 1. DuoNeb 3 mL inhaled q.4 hours p.r.n. 2. Aspirin 81 mg p.o. q.a.m. 3. Coreg 3.125 mg p.o. b.i.d. 4. Lasix 40 mg p.o. daily. 5. Losartan 100 mg p.o. daily. 6. Mevacor 40 mg p.o. at bedtime. 7. Nitroglycerin 0.4 mg sublingual q.5 minutes p.r.n. 8. Aldactone 25 mg p.o. daily. 9. [employer] Supervisor was contacted to get the patient's supplemental home O2 as well as to get the patient connected with the [facility] since he voiced concerns about not being able to take his medicines because he could not buy them and he has had trouble finding work. FOLLOWUP: Patient is being discharged home. He will need to follow up with Dr. Rick Underwood on 11/17/2016 at 9 a.m. The patient can return to the ED for any worsening of symptoms. Dictated by NICOLE Perez for Ignacio Horn MD cc: Ignacio Horn MD
== END 2016-10-20 14:58 | disposition home or self-care (01) ==
LOC: ED 05:29 → SUATTDRO 10:29 → 3S 10:29
PROVIDERS: ATTEND Internal Medicine